=== PATIENT | female | born 2000 | race Caucasian/White ===

== ENCOUNTER 2018-09-08 16:50 | Emergency (ER) | payer OTHER ==
[2018-09-08 17:02] VITALS: BP 109/74; PULSE 92; TEMP 98.4; BMI 23.3
--- NOTE | 2018-09-08 17:27 | PDOC ---
History of Present Illness - General Chief Complaint: Weakness Stated Complaint: FEELING SICK WEAK Time Seen by Provider: 09/08/18 17:01 History Source: Patient, Parent(s) Exam Limitations: No Limitations - History of Present Illness Initial Comments: 09/08/18 17:21 Patient came with mother with complaints of many months of malaise, fatigue, and anorexia. 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 However states the symptoms have been intermittent for the past few years. Has never been evaluated for these complaints, denies any history of anorexia or bulimia, however reports to being told had iron deficient anemia. Takes supplements of iron liquid but has never been followed up in the past 2 years for repeat levels she denies fever, or throat pain, any URI symptoms. Denies any nausea vomiting diarrhea or constipation. States has regular menses and is not sexually active currently. One else in the family is ill. Mother who is with patient reports that daughter has had issues with food most of her life. Timing/Duration: unsure Severity: mild, moderate Associated Symptoms: reports: loss of appetite, malaise. denies: fever/chills, headaches, nausea/vomiting Past History - Travel Traveled outside of the country in the last 30 days: No Close contact w/someone who was outside of country & ill: No - Past Medical History Allergies/Adverse Reactions: Allergies Allergy/AdvReac Type Severity Reaction Status Date / Time No Known Allergies Allergy Verified 09/08/18 17:00 Home Medications: Ambulatory Orders NK [No Known Home Medication] 09/08/18 Anemia: Yes COPD: No CHF: No Disorders: No Hypercholesterolemia: No - Immunization History Immunization Up to Date: No - Suicide/Smoking/Psychosocial Hx Smoking History: Never smoked Have you smoked in the past 12 months: No Information on smoking cessation initiated: No Hx Alcohol Use: No Drug/Substance Use Hx: No Review of Systems - Review of Systems Able to Perform ROS?: Yes Is the patient limited Welsh proficient: Yes Constitutional: Yes: Symptoms Reported, See HPI, Loss of Appetite, Malaise. No : Chills, Fever HEENTM: Yes: See HPI. No: Symptoms Reported Respiratory: Yes: See HPI. No: Symptoms reported, Cough ABD/GI: Yes: See HPI, Poor Appetite, Poor Fluid Intake. No: Symptoms Reported, Abdominal Distended, Constipated, Diarrhea, Nausea, Vomiting Musculoskeletal: Yes: Symptoms Reported, See HPI, Muscle Weakness All Other Systems: Reviewed and Negative *Physical Exam - Vital Signs Last Vital Signs Temp Pulse Resp BP Pulse Ox 98.4 F 92 H 20 109/74 98 09/08/18 16:57 09/08/18 16:57 09/08/18 16:57 09/08/18 16:57 09/08/18 16:57 - Physical Exam General Appearance: Yes: Nourished, Appropriately Dressed, Thin. No: Apparent Distress HEENT: positive: DILSHAD, Normal ENT Inspection, TMs Normal, Pharynx Normal. negative: Pale Conjunctivae, Scleral Icterus (R), Scleral Icterus (L) Neck: positive: Supple. negative: Tender, Lymphadenopathy (R), Lymphadenopathy (L) Respiratory/Chest: positive: Lungs Clear, Normal Breath Sounds Gastrointestinal/Abdominal: positive: Normal Bowel Sounds, Soft. negative: Tender Musculoskeletal: positive: Normal Inspection Extremity: positive: Normal Capillary Refill, Normal Inspection Integumentary: positive: Dry, Warm, Pale Neurologic: positive: sight effects specialist II-XII NML intact, Fully Oriented, Alert, Normal Mood/ Affect, Normal Response, Motor Strength 5/5 ED Treatment Course - LABORATORY CBC & Chemistry Diagram: 09/08/18 17:17 09/08/18 17:17 Medical Decision Making - Medical Decision Making 09/08/18 18:27 Laboratory work, chemistries within normal limits, CBC shows a significant anemia probable iron deficient. Patient encouraged to follow-up with PMD for further evaluation and possible treatment and given information about iron rich foods, and food supplements. *DC/Admit/Observation/Transfer Diagnosis at time of Disposition: Anemia Qualifiers: Anemia type: unspecified type Qualified Code(s): D64.9 - Anemia, unspecified - Discharge Dispostion Disposition: HOME Condition at time of disposition: Stable Decision to Admit order: No - Referrals Referrals: ON STAFF,NOT [Primary Care Provider] - Duc Barragan MD [Staff Physician] - - Patient Instructions Printed Discharge Instructions: DI for Iron Deficiency Anemia-Adult, Good Food Sources of Iron Additional Instructions: Rest, drink lots of fluids: Teas, water, soups Continue [id number] medications/ supplements for iron supplementation Consider use of food supplements like Ensure Followup with private physician in one to 2 days for further evaluation and potential further treatment Return to emergency department for worsened symptoms, fevers, dehydration - Post Discharge Activity Forms/Work/School Notes: Back to School
[2018-09-08 17:35] LABS: EOS % 0.3 % (0-4.5); HEMATOCRIT 28.5 % (32.4-45.2); HEMOGLOBIN 8.9 GM/dL (10.7-15.3); LYMPH % 28.9 % (8-40); MCHC 31.2 g/dl (32.0-36.0); MEAN CELL VOLUME 59.1 fl (80-96); MEAN PLT VOLUME 8.9 fl (7.5-11.1); MONO % 7.5 % (3.8-10.2); NEUT % 62.3 % (42.8-82.8); PLATELET COUNT 463 K/MM3 (134-434); RBC 4.81 M/mm3 (3.60-5.2); RDW 23.8 % (11.6-15.6); WHITE BLOOD COUNT 3.8 K/mm3 (4.0-10.0)
[2018-09-08 17:36] LABS: MCH 18.5 pg (25.7-33.7)
[2018-09-08 17:52] LABS: ALBUMIN 3.9 g/dl (3.4-5.0); BILIRUBIN,TOTAL 0.3 mg/dL (0.2-1); CALCIUM 9.3 mg/dL (8.5-10.1); CREATININE 0.7 mg/dL (0.55-1.3); POTASSIUM 4.1 mmol/L (3.5-5.1); TOT PROT 7.3 g/dl (6.4-8.2)
[2018-09-08 18:47] LABS: ANISOCYTOSIS 2+
[2018-09-08 18:48] LABS: PLATELET ESTIMATE SLT INCREASE
== END 2018-09-08 20:16 | disposition home or self-care (01) ==
LOC: JERFT 16:50
DX: D64.9 Anemia, unspecified (principal)
CPT/HCPCS: 36415; 80053; 85025; 99281-25